=== PATIENT | female | born 1960 | race Caucasian/White ===

== ENCOUNTER 2018-09-21 13:44 | Emergency (ER) | payer MEDICARE, MEDICAID ==
[~2018-09-21] VITALS: Ht 165.1 cm; Wt 70.0 kg
[~2018-09-21 13:44] MED LIST: CELE-193 PO; LISI-222 PO; METH10DI2 PO; SYN0.075T PO
[2018-09-21 13:53] VITALS: BP 140/87
[2018-09-21] MEDS ORDERED: TETanus/Pertussis (Acell)/Diphther VAC/PF (Tdap-Adult) 0.5ml syringe IM ONE (16:30)
[2018-09-21] MEDS ORDERED: LIDOcaine 1.5% w/epinephrine 1:200,000 5ml ampul IJ ONE (16:30)
[2018-09-21] MEDS ORDERED: LIDOcaine 1% w/epiNEPHrine 1:200,000 30ml vial IJ ONE (16:35)
[2018-09-21] MEDS ORDERED: CEPH-572 PO (17:02)
== END 2018-09-21 17:15 | disposition home or self-care (01) ==
LOC: ER 13:44
DX: L03.012 Cellulitis of left finger (principal); I10 Essential (primary) hypertension; Z86.73 Personal history of transient ischemic attack (TIA), and cerebral infarction without residual deficits; Z90.49 Acquired absence of other specified parts of digestive tract; Z79.899 Other long term (current) drug therapy
CPT/HCPCS: 10060; 90471; 90715; 99283; J3490

== ENCOUNTER 2018-11-19 10:40 | Emergency (ER) | payer MEDICARE, MEDICAID ==
[~2018-11-19] VITALS: Ht 165.1 cm; Wt 69.5 kg
[2018-11-19 10:48] VITALS: BP 161/100
[2018-11-19] MEDS ORDERED: orphenadrine citrate 60mg/2ml inj. IM ONE (11:10)
== END 2018-11-19 11:36 | disposition home or self-care (01) ==
LOC: ER 10:40
DX: M43.6 Torticollis (principal); I10 Essential (primary) hypertension; G89.29 Other chronic pain; Z86.73 Personal history of transient ischemic attack (TIA), and cerebral infarction without residual deficits; Z90.49 Acquired absence of other specified parts of digestive tract; Z88.0 Allergy status to penicillin; Z79.899 Other long term (current) drug therapy
CPT/HCPCS: 96372; 99283; J2360

== ENCOUNTER 2022-12-14 09:09 | Outpatient (CLI) | payer MEDICARE, MEDICAID ==
[~2022-12-14 09:09] MED LIST changes: +APIX5TAB3 PO; +BUPR2TAB11 SL; +CARCD120C PO; -LISI-222 PO; -METH10DI2 PO; +ONDA4TAB12 PO; +TAM75C PO
== END 2022-12-14 23:59 | disposition home or self-care (01) ==
LOC: CARD DIAG 09:09
PROVIDERS: ATTEND Internal Medicine Cardiovascular Disease
DX: I08.1 Rheumatic disorders of both mitral and tricuspid valves (principal); I11.9 Hypertensive heart disease without heart failure; I48.91 Unspecified atrial fibrillation
CPT/HCPCS: 93306

== ENCOUNTER 2024-09-03 09:06 | Inpatient (IN) | payer MEDICARE, OTHER ==
[~2024-09-03] VITALS: Ht 165.1 cm; Wt 68.2 kg
[~2024-09-03 09:06] MED LIST changes: +ONDA-243 PO; -ONDA4TAB12 PO
[2024-09-03 09:39] LABS: BASOPHILS # (AUTO) 0.1 X10'3 (0-0.2); BASOPHILS % (AUTO) 0.9 % (0-1); EOSINOPHILS # (AUTO) 0.2 X10'3 (0-0.9); HEMATOCRIT 43.6 % (35.0-45.0); HEMOGLOBIN 14.5 g/dl (12.0-16.0); LYMPHOCYTES # (AUTO) 1.8 X10'3 (1.1-4.8); LYMPHOCYTES % (AUTO) 27.1 % (21-51); MEAN CORPUSCULAR HEMOGLOBIN 29.7 PG (27.0-31.0); MEAN CORPUSCULAR HGB CONC 33.4 g/dL (33.0-36.5); MEAN CORPUSCULAR VOLUME 88.9 FL (78-98); MEAN PLATELET VOLUME 7.5 FL (7.4-10.4); MONOCYTES # (AUTO) 0.5 X10'3 (0-0.9); MONOCYTES % (AUTO) 6.9 % (2-12); NEUTROPHILS # (AUTO) 4.1 X10'3 (1.8-7.7); NEUTROPHILS % (AUTO) 62.1 % (42-75); PLATELET COUNT 339 X10'3 (140-440); WHITE BLOOD COUNT 6.6 X10'3 (4.5-11.0)
[2024-09-03 09:56] LABS: ALBUMIN 4.4 G/DL (3.4-5.0); ANION GAP 7 (8-16); BLOOD UREA NITROGEN 14 MG/DL (7-18); CHLORIDE 104 MMOL/L (99-107); GLUCOSE 89 MG/DL (70-104); POTASSIUM 4.3 MMOL/L (3.5-5.1); SODIUM 138 MMOL/L (135-145); TOTAL CARBON DIOXIDE 26.6 MMOL/L (24-32); eCRCL 72 ML/MIN; eGFR 84 ML/MIN
[2024-09-03 09:58] LABS: APTT 29 SECONDS (22-32); PROTHROMBIN TIME 10.7 SECONDS (9.0-12.0)
[2024-09-03 10:44] LABS: THYROID STIMULATING HORMONE 2.56 ulU/ml (0.34-4.50)
[2024-09-03 10:57] LABS: BILIRUBIN,URINE NEGATIVE (Neg); CLARITY,URINE CLEAR (Clear); COLOR,URINE STRAW (Yellow); GLUCOSE, URINE NEGATIVE (Neg); KETONES,URINE NEGATIVE (Neg); LEUKOCYTE ESTERASE ,URINE NEGATIVE (Neg); NITRITES, URINE NEGATIVE (Neg); OCCULT BLOOD,URINE TRACE-INTACT (Neg); PH,URINE 7.5 (4.8-8.0); PROTEIN,URINE TRACE mg/dl (Neg); UROBILINOGEN,URINE 0.2 E.U/dL (0.2-1.0)
[2024-09-03 11:00] LABS: UA COLLECTION TYPE VOIDED
[2024-09-03 11:02] LABS: BACTERIA,URINE NONE SEEN /HPF (Neg); MUCUS STRANDS NONE SEEN /LPF (Neg); RBC,URINE 0-2 /HPF (0-2); SQUAMOUS EPITHELIAL CELL,UR FEW /LPF (FEW); WBC,URINE 0-4 /HPF (0-4)
[2024-09-03 11:04] LABS: URINE AMPHETAMINE SCREEN NEGATIVE (Neg); URINE BARBITUATE SCREEN NEGATIVE (Neg); URINE BENZODIAZEPINES SCREEN NEGATIVE (Neg); URINE CANNABINOID SCREEN NEGATIVE (Neg); URINE COCAINE SCREEN NEGATIVE (Neg); URINE METHADONE SCREEN NEGATIVE (Neg); URINE OPIATE SCREEN NEGATIVE (Neg); URINE PHENCYCLIDINE SCREEN NEGATIVE (Neg)
[2024-09-03] MEDS ORDERED: iohexol 350MG/ML 100ml bottle IV ONE (11:27)
[2024-09-03] MEDS ORDERED: LISI10TA27 PO (11:38)
[2024-09-03] MEDS ORDERED: SOTA80TA PO (11:38)
[2024-09-03] MEDS: acetaminophen 325mg tablet PO ONE (12:02)
[2024-09-03] MEDS ORDERED: acetaminophen 325mg tablet PO PRN (13:25)
[2024-09-03] MEDS ORDERED: potassium Cl 20 mEq SR tablet PO PRN ×2 (13:25)
[2024-09-03] MEDS ORDERED: potassium Cl 40MEQ/1/2NS 520ml 520 ML IV PRN (13:25)
[2024-09-03] MEDS ORDERED: magnesium sulf-water 4G/100mL 100 ML IV PRN (13:25)
[2024-09-03] MEDS ORDERED: magnesium hydroxide 30ml (MOM) UD suspension PO PRN (13:25)
[2024-09-03] MEDS ORDERED: magnesium sulf-water 2g/50mL 50 ML IV PRN (13:25)
[2024-09-03] MEDS ORDERED: bisacodyl 10mg suppository rectal RC PRN (13:25)
[2024-09-03 13:53] LABS: ALANINE AMINOTRANSFERASE 25 U/L (12-78); ALBUMIN/GLOBULIN RATIO 0.9 (1.1-1.5); ALKALINE PHOSPHATASE 115 IU/L (46-116); ASPARTATE AMINO TRANSFERASE 32 U/L (10-37); BILIRUBIN,DIRECT 0.1 MG/DL (0-0.3); BILIRUBIN,TOTAL 0.5 MG/DL (0.1-1.0); TOTAL PROTEIN 9.3 G/DL (6.4-8.2)
[2024-09-03] MEDS: normal saline 1000ml 1,000 ML IV SCH (13:53)
[2024-09-03] MEDS: atorvastatin 20mg tablet PO SCH (13:54)
[2024-09-03 14:00] LABS: HEMOGLOBIN A1C 5.3 % (4.5-6.2)
[2024-09-03] MEDS: sotalol 80mg tablet PO SCH (17:43)
[2024-09-03] MEDS: apixaban 5mg tablet PO SCH (19:35)
[2024-09-03] MEDS: docusate sod 100mg capsule PO SCH (19:35)
[2024-09-03] MEDS: acetaminophen 325mg tablet PO PRN (19:35)
[2024-09-03 20:00] VITALS: BP 174/100; PULSE 66; RESP 19; TEMP 97.5; O2SAT 100
[2024-09-03] MEDS: K and/or MAG REPLACEMENT MC SCH (20:00)
[2024-09-03] MEDS: BUPRENORPHINE HCL 2 MG SL SCH (20:00)
[2024-09-03 21:00] VITALS: BP 174/100; PULSE 66; TEMP 97.5; O2SAT 100
[2024-09-03 21:30] VITALS: BP 174/100; PULSE 66; TEMP 97.5; O2SAT 100
[2024-09-03] MEDS: HYDROcodone/acetaminophen 5mg/325mg tablet PO ONE (22:41)
[2024-09-04] VITALS (17 sets, daily range): BP systolic 136–209; BP diastolic 76–131; PULSE 64–95; RESP 13–17; TEMP 97.6–98.7; O2SAT 94–99
[2024-09-04 06:41] LABS: BASOPHILS # (AUTO) 0.1 X10'3 (0-0.2); BASOPHILS % (AUTO) 0.9 % (0-1); EOSINOPHILS # (AUTO) 0.1 X10'3 (0-0.9); EOSINOPHILS % (AUTO) 1.7 % (0-6); HEMATOCRIT 43.7 % (35.0-45.0); HEMOGLOBIN 14.8 g/dl (12.0-16.0); LYMPHOCYTES # (AUTO) 1.8 X10'3 (1.1-4.8); LYMPHOCYTES % (AUTO) 22.8 % (21-51); MEAN CORPUSCULAR VOLUME 88.4 FL (78-98); MEAN PLATELET VOLUME 7.9 FL (7.4-10.4); MONOCYTES # (AUTO) 0.6 X10'3 (0-0.9); MONOCYTES % (AUTO) 7.7 % (2-12); NEUTROPHILS # (AUTO) 5.2 X10'3 (1.8-7.7); NEUTROPHILS % (AUTO) 66.9 % (42-75); PLATELET COUNT 341 X10'3 (140-440); RED BLOOD COUNT 4.94 X10'6 (4.20-5.60); RED CELL DISTRIBUTION WIDTH 13.8 % (11.5-14.5); WHITE BLOOD COUNT 7.8 X10'3 (4.5-11.0)
[2024-09-04 07:10] LABS: ALANINE AMINOTRANSFERASE 26 U/L (12-78); ALBUMIN/GLOBULIN RATIO 0.9 (1.1-1.5); ANION GAP 10 (8-16); ASPARTATE AMINO TRANSFERASE 24 U/L (10-37); BILIRUBIN,TOTAL 0.7 MG/DL (0.1-1.0); BLOOD UREA NITROGEN 14 MG/DL (7-18); BUN/CREATININE RATIO 19.2 (10.0-20.0); CALCIUM 9.9 MG/DL (8.5-10.1); CHLORIDE 105 MMOL/L (99-107); CREATININE 0.73 MG/DL (0.40-0.90); GLUCOSE 95 MG/DL (70-104); MAGNESIUM 2.2 MG/DL (1.5-2.4); POTASSIUM 3.8 MMOL/L (3.5-5.1); SODIUM 140 MMOL/L (135-145); TOTAL CARBON DIOXIDE 24.9 MMOL/L (24-32); TOTAL PROTEIN 8.4 G/DL (6.4-8.2); eCRCL 69 ML/MIN; eGFR 80 ML/MIN
[2024-09-04 07:11] LABS: ALKALINE PHOSPHATASE 103 IU/L (46-116); CHOL/HDL RATIO 2.5 (0.00-4.99); CHOLESTEROL 194 MG/DL (0-200); FREE T4 (FREE THYROXINE) 1.09 NG/DL (0.73-1.40); HDL CHOLESTEROL 78 MG/DL (35-60); LDL CHOLESTEROL 100 MG/DL (50-100); TRIGLYCERIDES 58 MG/DL (20-135)
[2024-09-04] MEDS: levoTHYROXINE 75mcg tablet PO SCH (08:25)
[2024-09-04] MEDS ORDERED: HYDROcodone/acetaminophen 5mg/325mg tablet PO PRN (13:10)
[2024-09-04] MEDS: hydrALAZINE 20mg/ml inj. IV PRN (13:23)
[2024-09-04] MEDS ORDERED: atorvastatin 20mg tablet PO ONE (13:25)
[2024-09-04] MEDS: HYDROcodone/acetaminophen 10/325mg tab PO PRN (13:26)
[2024-09-04] MEDS: lisinopril 10 MG tablet PO SCH (19:55)
[2024-09-04] MEDS: ondansetron/PF 4mg/2ml inj IV PRN (19:57)
[2024-09-04] MEDS: metoclopramide 5 mg/ml inj IV PRN (23:49)
[2024-09-05 01:15] VITALS: BP 183/105; PULSE 86; RESP 23; TEMP 97.8; O2SAT 95
[2024-09-05] MEDS ORDERED: labetalol 20mg/4ml (5mg/ml) syringe IV ONE (01:30)
[2024-09-05] MEDS: diphenhydrAMINE 50 mg/ml inj IV ONE (01:30)
[2024-09-05] MEDS: hydrALAZINE 20mg/ml inj. IV ONE (03:13)
[2024-09-05] MEDS: proCHLORperazine 10 MG/2 ml inj IV ONE (03:14)
[2024-09-05 05:53] LABS: BASOPHILS % (AUTO) 0.2 % (0-1); EOSINOPHILS % (AUTO) 0 % (0-6); HEMATOCRIT 43.7 % (35.0-45.0); HEMOGLOBIN 14.7 g/dl (12.0-16.0); LYMPHOCYTES # (AUTO) 1.3 X10'3 (1.1-4.8); LYMPHOCYTES % (AUTO) 9.5 % (21-51); MEAN CORPUSCULAR HEMOGLOBIN 29.4 PG (27.0-31.0); MEAN CORPUSCULAR HGB CONC 33.5 g/dL (33.0-36.5); MEAN CORPUSCULAR VOLUME 87.6 FL (78-98); MONOCYTES # (AUTO) 0.4 X10'3 (0-0.9); NEUTROPHILS # (AUTO) 11.6 X10'3 (1.8-7.7); NEUTROPHILS % (AUTO) 87.3 % (42-75); PLATELET COUNT 382 X10'3 (140-440); RED BLOOD COUNT 4.99 X10'6 (4.20-5.60); RED CELL DISTRIBUTION WIDTH 13.9 % (11.5-14.5); WHITE BLOOD COUNT 13.3 X10'3 (4.5-11.0)
[2024-09-05 06:00] VITALS: BP 169/96; PULSE 102; RESP 18; TEMP 98.3; O2SAT 96
[2024-09-05 06:09] LABS: ALANINE AMINOTRANSFERASE 15 U/L (12-78); ALBUMIN/GLOBULIN RATIO 0.9 (1.1-1.5); ALKALINE PHOSPHATASE 101 IU/L (46-116); ANION GAP 15 (8-16); ASPARTATE AMINO TRANSFERASE 29 U/L (10-37); BILIRUBIN,TOTAL 0.6 MG/DL (0.1-1.0); BLOOD UREA NITROGEN 12 MG/DL (7-18); BUN/CREATININE RATIO 17.9 (10.0-20.0); CALCIUM 9.5 MG/DL (8.5-10.1); CHLORIDE 105 MMOL/L (99-107); CREATININE 0.67 MG/DL (0.40-0.90); GLUCOSE 153 MG/DL (70-104); MAGNESIUM 1.7 MG/DL (1.5-2.4); POTASSIUM 3.5 MMOL/L (3.5-5.1); SODIUM 139 MMOL/L (135-145); TOTAL CARBON DIOXIDE 19.3 MMOL/L (24-32); TOTAL PROTEIN 8.5 G/DL (6.4-8.2); eCRCL 75 ML/MIN; eGFR 88 ML/MIN
[2024-09-05] MEDS: atorvastatin 20mg tablet PO SCH (09:21)
[2024-09-05] MEDS: HYDROchlorothiazide 25mg tablet PO ONE (09:24)
[2024-09-05 10:00] VITALS: BP 155/93; PULSE 89; RESP 20; TEMP 98.6; O2SAT 97
[2024-09-05 11:28] VITALS: BP 165/84; PULSE 74; RESP 18; O2SAT 98
[2024-09-05 11:31] VITALS: RESP 18; O2SAT 98
[2024-09-05 12:09] VITALS: BP 141/68; PULSE 83
[2024-09-05] MEDS ORDERED: ATOR20TA66 PO (12:21)
[2024-09-05] MEDS ORDERED: HYDR25TA4 PO (12:21)
[2024-09-06] MEDS ORDERED: HYDROchlorothiazide 25mg tablet PO SCH (08:00)
== END 2024-09-05 13:58 | disposition home or self-care (01) | DRG 305 ==
LOC: ER 09:07 → ED HOLD 13:33 → ORTHO 4S 20:55
PROVIDERS: ADMIT Family Medicine; ATTEND Family Medicine
PROC: B32T1ZZ Computerized Tomography (CT Scan) of Left Pulmonary Artery using Low Osmolar Contrast (ICD-10-PCS; 2024-09-03)
PROC: B3201ZZ Computerized Tomography (CT Scan) of Thoracic Aorta using Low Osmolar Contrast (ICD-10-PCS; 2024-09-03)
PROC: B32S1ZZ Computerized Tomography (CT Scan) of Right Pulmonary Artery using Low Osmolar Contrast (ICD-10-PCS; 2024-09-03)
PROC: 4A00X4Z Measurement of Central Nervous Electrical Activity, External Approach (ICD-10-PCS; principal; 2024-09-04)
DX: I16.1 Hypertensive emergency (principal); I48.20 Chronic atrial fibrillation, unspecified; G45.4 Transient global amnesia; I10 Essential (primary) hypertension; I34.0 Nonrheumatic mitral (valve) insufficiency; M54.50 Low back pain, unspecified; E05.00 Thyrotoxicosis with diffuse goiter without thyrotoxic crisis or storm; G47.33 Obstructive sleep apnea (adult) (pediatric); Z88.0 Allergy status to penicillin; Z90.49 Acquired absence of other specified parts of digestive tract; Z79.899 Other long term (current) drug therapy; Z86.73 Personal history of transient ischemic attack (TIA), and cerebral infarction without residual deficits; Z80.3 Family history of malignant neoplasm of breast
CPT/HCPCS: 36415; 70450; 70496; 70498; 70551; 71045; 80048; 80053; 80061; 80076; 80305; 81001; 82607; 82948; 83036; 83735; 84439; 84443; 85025; 85610; 85730; 86885; 86900; 86901; 87081; 92508; 92616; 93005; 93306; 95816; 97110; 97116; 97163; 99285; A6590; G0378; J0360; J0780; J2405; J2765; J7030; Q9967

== ENCOUNTER 2025-06-06 11:18 | Inpatient (IN) | payer MEDICARE, MEDICAID ==
[~2025-06-06] VITALS: Ht 160 cm; Wt 71.0 kg
[~2025-06-06 11:18] MED LIST changes: +ATOR20TA66 PO; -CARCD120C PO; -CELE-193 PO; +LISI10TA27 PO; -ONDA-243 PO; +SOTA80TA PO; -TAM75C PO
--- NOTE | 2025-06-06 11:34 | ELECTROCARDIOGRAPH REPORT ---
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
[2025-06-06 12:04] LABS: MEAN PLATELET VOLUME 7.4 FL (7.4-10.4); RED CELL DISTRIBUTION WIDTH 14.0 % (11.5-14.5)
--- NOTE | 2025-06-06 12:04 | RADIOLOGY REPORT ---
CT CT STROKE ALERT Indication: Stroke Alert EXAM DATE: 06/06/2025 11:35 AM COMPARISON: CT CT STROKE ALERT on DOS: 09/03/24 TECHNIQUE: CT of the head without intravenous contrast. RADIATION DOSE: CTDIvol: 50 mGy, DLP: 890 mGy*cm FINDINGS: There is no intracranial hemorrhage. There is no extra-axial fluid, mass, mass effect or midline shift. The ventricles are midline and normal in size. Basilar cisterns are patent. Mild periventricular, subcortical white matter chronic microvascular ischemic changes The paranasal sinuses and mastoids are well-pneumatized. Imaged portion of the orbits are unremarkable. IMPRESSION: No intracranial hemorrhage or mass effect. Mild chronic microvascular ischemic changes.
--- NOTE | 2025-06-06 12:06 | Physician Documentation ---
History of Present Illness ~ Chief Complaint: Stroke Alert Stated Complaint: R/O STROKE Time Seen by MD: 12:04 Primary Medical Doctor: JASON Mode of Arrival: POV HPI This is a 64-year-old female on apixaban who presents for evaluation of sudden onset blurry vision, diaphoresis, left upper extremity weakness that began at 9:00 a.m.. No obvious trigger provocation. The palliating or aggravating factors. She had gone to see her PCP and noticed for the her blood pressure was markedly elevated. PCP sent her here for evaluation of stroke-like symptoms. Symptoms still persist. Reports intermittent chest pain/chest discomfort. This is not new for her. She had experienced this in the past. Denies shortness a breath. No concern for tobacco, alcohol or illicit substances use Medication Reconciliation Allergies: Coded Allergies: Penicillins (Unverified Allergy, Unknown, 09/03/24) diphenhydramine (Unverified Adverse Reaction, Intermediate, 09/05/24) headache Scheduled Apixaban (Eliquis), 5 MG PO BID Atorvastatin Calcium (Atorvastatin Calcium), 20 MG PO DAILY Buprenorphine Hcl (Buprenorphine Hcl), 0.5-1 TAB SL BID, (Reported) Levothyroxine Sodium* (Synthroid*), 75 MCG PO DAILY, (Reported) Lisinopril (Lisinopril), 1 TAB PO BID, (Reported) Sotalol Hcl (Sotalol), 1 TAB PO BID, (Reported) Past Medical History Past Medical History: CVA/TIA/Stroke, Atrial Fibrillation, Hypertension, Hypothyroidism, Chronic Back Pain Past Surgical History: appendectomy, other Patient History: FH: breast cancer Paternal grandmother Alcohol Use: Rarely Drug Use: none Lives In: Home Occupation: employed Review of Systems ROS 10 point review of systems was performed and unless noted above in HPI is negative for acute process/complaint. Physical Exam Vital Signs: Temperature: 97.4, Source: Temporal, Heart Rate: 53, Respiratory Rate: 16, BP: 182/63, Pulse Oximetry: 100, Weight: 71.000 Oxygen Flow Rate: 0 General Appearance GENERAL: Awake, alert, oriented, GCS 15, no apparent distress, non-toxic appearing, answers questions, follows commands appropriately. Examined in bed 1. HEENT: Atraumatic, normocephalic, pupils equal, extraocular muscles intact, sclerae anicteric, mucus membranes moist, oropharynx is clear, no stridor. NECK: supple, full active range of motion, trachea midline, no thyromegaly, no lymphadenopathy, no JVD. CARDIOVASCULAR: regular rate/rhythm, no murmurs/gallops/rubs, Pulses are 2+ in all extremities and symmetric. Capillary refill less than 2 seconds. PULMONARY: Nonlabored, good air movement ,no respiratory distress, speaking in full sentences, clear to auscultation bilaterally, no wheezing, no ronchi, no rales, no accessory muscle use. GASTROINTESTINAL: Soft, non-tender, non-distended, normal active bowel sounds, no organomegaly, no pulsatile masses, no CVA tenderness. NEUROLOGIC: Lucid with normal mental status. Normal facial symmetry. Decreased sensation in V1 through V3 dermatomes on the left side. Otherwise cranial nerves 2-12 intact. Left upper extremities 4/5 strength, right upper extremities 5/5 strength. Left upper extremity drift noted. Lower extremities are symmetric, 5/5. Gait not tested. MUSCULOSKELETAL: There is full range of motion of all extremities. There is no joint pain or joint swelling or joint erythema. There is no muscle pain or tenderness or swelling. EXTREMITIES: warm, well-perfused, no cyanosis, no clubbing, no edema, no acute deformities. Skin: warm, dry, no rashes or lesions, no jaundice, no petechiae orpurpura. No ecchymosis. PSYCHIATRIC: Normal affect, normal insight, normal concentration. Focused exam: [] t-PA t-PA given w/in 2hrs?: No Progress Results/Orders Results/Orders Orders - CHARLIE GONZALES DO Monitor (06/06/25 11:30) 2 Large Bore Ivs (06/06/25 11:30) Chest,Single View (06/06/25 11:30) Accucheck (06/06/25 11:30) Ct Stroke Alert (06/06/25 11:42) [place] Prov.Neuro Consult (06/06/25 11:30) Cta Neck/Head (06/06/25 11:57) Completed Orders - CHARLIE GONZALES DO Cbc/Diff (06/06/25 11:30) Electrocardiogram (06/06/25 11:30) Chest,Single View (06/06/25 11:30) Ct Stroke Alert (06/06/25 11:42) BMP (06/06/25 11:30) PTT (06/06/25 11:30) Pt Inr (06/06/25 11:30) Cta Neck/Head (06/06/25 11:57) Normal Saline 1000ml (0.9% Sodium Chlori (06/06/25 12:30) Medications Received in ER Medications (Trade) Dose Ordered Sig/Becki Route PRN Reason Start Time Stop Time Status Last Admin Dose Admin Sodium Chloride 1,000 ml @ 1,000 mls/hr ONCE ONCE IV 06/06/25 12:30 06/06/25 13:29 DC 06/06/25 12:56 1,000 MLS/HR Vital Signs 06/06/25 06/06/25 06/06/25 06/06/25 11:19 11:44 11:44 12:00 Temp 97.4 Pulse 53 60 59 Resp 16 12 10 B/P (MAP) 182/63 169/97 169/97 Pulse Ox 100 98 96 O2 Flow Rate 0 06/06/25 06/06/25 06/06/25 06/06/25 12:19 12:30 12:45 12:59 Pulse 60 54 52 54 Resp 16 15 14 13 B/P (MAP) 175/89 149/77 151/54 155/82 Pulse Ox 94 96 92 95 06/06/25 13:15 Pulse 53 Resp 14 B/P (MAP) 160/70 Pulse Ox 97 Laboratory Tests Test 06/06/25 11:25 06/06/25 11:56 Glucometer 97 White Blood Count 10.1 Red Blood Count 4.27 Hemoglobin 12.6 Hematocrit 37.4 Mean Corpuscular Volume 87.5 Mean Corpuscular Hemoglobin 29.5 Mean Corpuscular Hemoglobin Concent 33.7 Red Cell Distribution Width 14.0 Platelet Count 299 Mean Platelet Volume 7.4 Neutrophils (%) (Auto) 71.9 Lymphocytes (%) (Auto) 19.0 L Monocytes (%) (Auto) 6.6 Eosinophils (%) (Auto) 1.8 Basophils (%) (Auto) 0.7 Neutrophils # (Auto) 7.3 Lymphocytes # (Auto) 1.9 Monocytes # (Auto) 0.7 Eosinophils # (Auto) 0.2 Basophils # (Auto) 0.1 CBC Comment Prothrombin Time 10.4 INR International Normalized Ratio 1.0 Activated Partial Thromboplast Time 29 Coagulation Comments Sodium Level 144 Potassium Level 4.2 Chloride Level 107 Carbon Dioxide Level 30.2 Anion Gap 7 L Blood Urea Nitrogen 19 H Creatinine 0.91 H Estimated GFR/1.73 m2 62 BUN/Creatinine Ratio 20.9 H Glucose Level 103 Calcium Level 9.7 Albumin 3.9 Chemistry Comments EKG/XRAY/CT/US/VASC/MRI EKG : Additional Comment EKG was obtained and shows status bradycardic, rate of EKG, normal MT interval, narrow QRS, no QT prolongation, normal axis, no STEMI. Medical Decision Making Findings Facility Status: ED Holds, RME process The plan was discussed with the patient, who demonstrates clear understanding of the plan and is in agreement with the plan unless otherwise noted in the chart. All questions have been answered, all concerns were addressed unless otherwise documented. I was available throughout their ED stay for frequent reassessment and qu estions. Differential Diagnoses (considered and possible or likely): [TIA, CVA, partial seizure, complex migraine, hypoglycemia, electrolyte derangement, intracranial neoplasm] ??Differential Diagnoses (considered and unlikely, not requiring evaluation currently): [No evidence of traumatic injury] MDM Data Please see HPI for the following: Independent Historians and external Records Review. Historian: [Patient] Independent Historians: ?[Record review] Medication Management: [Reviewed medication list] Social History and determinants: [Reviewed] Please see the body of the note for the following: Any independent interpretations of ECG, imaging studies. All vitals signs/haemodynamics, ordered tests were independently reviewed and interpreted by myself. Nursing triage complaint and vitals reviewed, additional nursing notes were reviewed as available and I agree unless otherwise noted or documented in contradiction in the chart Vital Signs: Independently reviewed Labs: Independently interpreted Imaging: Independently interpreted Old Medical Records: Independently reviewed, see HPI for relevant summary and information Pulse Oximetry: [98%] interpreted as [normal on room air] by me [Experimental Machinist: [Regular Rate, Regular rhythm, no ectopy, NSR] reviewed and interpreted by me] Additionally notably showing: [Hemodynamics reviewed. The patient isn't febrile, not tachycardic, no evidence of hypotension respiratory distress. CBC is normal, no leukocytosis. Coagulation panel is unremarkable. Chemistry notable for mild dehydration. CC head without contrast per radiology confirms my read, the risk of hemorrhage or mass effect. CT angiography showed no large vessel occlusion. Chest x-ray shows no acute cardiopulmonary disease.] Tests considered but not ordered include: [MRI can be done on an inpatient basis] Social Determinants of Health Impact: Patient was evaluated in [facility], or [facility] [place] with limited access to healthcare due to below par ratio of patient to medical providers. [] Comorbid Conditions Impacting Present Evaluation and Care/Treatment: [See list] Management Discussions with other Healthcare Providers: [Hospitalist regarding admission] Treatment and Disposition Medication Management (Given or considered): [TNKase has been considered, but I feel that risks outweigh benefits]. See EMR for details Consideration for Hospitalization/Escalation/Deescalation of Care: Admission for observation has been considered, and appears to be necessary for further workup of her stroke-like symptoms ?ED Course:?[Date: Jun 06, 2025 Time: 11:55 per my independent review and interpretation of her head CT without contrast, there is no evidence of bleed. ] ?Shared decision making:?[] Code status:?FULL Please see the full Electronic Medical Record for full details of nursing documentation, medications list, other records of complete past medical history and conditions, vital signs, laboratory studies, and any radiologic study interpretations by radiologists. Portions of this note were completed using EverCloud dictation software and as a result there may exist minor errors in spel ling. I have reviewed elements of past family and social history and agree as included in note. Departure Disposition: 09 ADMITTED INPATIENT Impression: Primary Impression: Stroke-like symptoms Additional Impressions: Hypertensive urgency Blurry vision Left arm weakness Condition: Stable Referrals: NO PRIMARY CARE PROVIDER (PCP) Critical Care Note Critical Care Note CRITICAL CARE TIME: [35 ] minutes Treatments/Evaluations: Close monitoring and treatment of unstable vital signs, cardiorespiratory, and neurologic status, while maintaining tight balance of fluid, respiratory, and cardiac interventions. This time includes discussing the case with the patient and the patients family. This time does not include all procedures stated elsewhere in this record. This time also includes reviewing old records, labs and radiological studies. This time includes examining and re- examining the patient. Additionally, this time also includes arranging care with admitting and consulting physicians. Signature Scribe Signature: No scribe Attestation: This note accurately reflects clinical decisions, work performed by myself, Charlie Gonzales, CHARLIE COOK DO Jun 06, 2025 12:06
[2025-06-06 12:18] LABS: APTT 29 SECONDS (22-32); INR 1.0 INR
--- NOTE | 2025-06-06 12:24 | RADIOLOGY REPORT ---
CT CTA NECK/HEAD INDICATION: Stroke Alert TECHNIQUE: CT angiography along with MIP and MPR images were obtained of the [place] arteries. CT angiography along with MIP and MPR images were obtained of the cervical carotid and vertebral arteries. All CT scans at this facility use dose modulation, iterative reconstruction, and/or weight based dosing when appropriate to reduce radiation dose to as low as reasonably achievable. 3-D postprocessing was performed on a separate workstation under radiologist supervision. IV CONTRAST: 100 mL of low osmolar intravenous iodinated contrast material was administered. COMPARISON: CT CT STROKE ALERT on DOS: 06/06/25 FINDINGS: CT HEAD: Parenchyma: No acute hemorrhage. There is no mass effect, midline shift, or herniation. There is preservation of the guevara white differentiation. Ventricles: There is no hydrocephalus. Extra-axial spaces: There are no extra-axial fluid collections. Other: The bony structures are intact. Visualized portions of the paranasal sinuses and mastoid air cells are clear. ANTERIOR CIRCULATION: Distal internal carotid arteries including the petrous, cavernous, and supraclinoid segments are patent bilaterally. Anterior cerebral arteries including the A1 and A2 segments are patent bilaterally. Anterior communicating artery patent without aneurysm formation. Middle cerebral arteries including the horizontal M1 and sylvian M2 are patent bilaterally. Congenitally absent versus hypoplastic posterior communicating arteries. POSTERIOR CIRCULATION: Posterior cerebral arteries are patent bilaterally. Vertebral arteries are codominant The intracranial segments of the vertebral arteries are patent bilaterally. The basilar artery is patent without aneurysm formation. The posterior inferior cerebellar arteries are patent bilaterally. CERVICAL VESSELS: The thoracic aortic arch is patent without evidence of aneurysmal dilatation or dissection. The right common carotid artery, carotid bulb, and cervical segment of the right internal carotid artery are patent The left common carotid artery, carotid bulb, and cervical segment of the left internal carotid artery are patent The cervical segments of the right vertebral artery are patent OTHER: [id number] centrilobular emphysema. Small less than 4 mm micro nodules in upper lobes. Consider dedicated CT of the chest with contrast if clinically indicated. IMPRESSION: 1. No large vessel occlusion, aneurysmal dilatation, or dissection seen within the intracranial or cervical vessels.
[2025-06-06 12:27] LABS: CREATININE 0.91 MG/DL (0.40-0.90); TOTAL CARBON DIOXIDE 30.2 MMOL/L (24-32); eCRCL 50 ML/MIN; eGFR 62 ML/MIN
--- NOTE | 2025-06-06 12:38 | RADIOLOGY REPORT ---
EXAM: DI CHEST,SINGLE VIEW Indication: pain Technique: Single frontal view of the chest was obtained Comparison: CT CTA CHEST PE W/ IV CONTRAST on DOS: 11/01/24, DI CHEST,SINGLE VIEW on DOS: 10/30/24, DI CHEST,SINGLE VIEW on DOS: 09/03/24, CHEST,SINGLE VIEW on DOS: 09/20/22, CHEST,SINGLE VIEW on DOS: 10/14/21 FINDINGS: Lines and Tubes: None Lungs: No focal consolidation. Pleura: No effusion. No pneumothorax. Cardiomediastinal contours: Unremarkable Bones: No acute osseous abnormality. IMPRESSION: No acute cardiopulmonary disease.
[2025-06-06] MEDS: normal saline 1000ml 1,000 ML IV ONE (12:56)
--- NOTE | 2025-06-06 13:27 | CONSULTATION REPORT ---
History of Present Illness Providers to CC ~ Refering MD: JASON Allergies: Coded Allergies: Penicillins (Unverified Allergy, Unknown, 09/03/24) diphenhydramine (Unverified Adverse Reaction, Intermediate, 09/05/24) headache Home Medications Home Medications Active Atorvastatin Calcium 20 Mg Tablet 20 Mg PO DAILY Eliquis (Apixaban) 5 Mg Tablet 5 Mg PO BID Reported Lisinopril 10 Mg Tablet 1 Tab PO BID Sotalol (Sotalol Hcl) 80 Mg Tablet 1 Tab PO BID Buprenorphine Hcl 2 Mg Tab.subl 0.5-1 Tab SL BID Synthroid* (Levothyroxine Sodium) 75 Mcg Tablet 75 Mcg PO DAILY Past Family History Family History: FH: breast cancer Paternal grandmother Physical Exam Last Vital Signs Recorded: Temperature: 97.9, Source: Temporal, Heart Rate: 54, Respiratory Rate: 13, BP: 155/82, Pulse Oximetry: 95, Weight: 71.000 Results Diagram Lab Result Diagram: 06/06/25 1156 06/06/25 1156 Assessment/Plan Additional Plan [place] [facility] Note # Demographics Consult Type: Acute Stroke Level 1 (0-4.5 hrs) Patient Location: Emergency Room First Name: SHY Last Name: ALE Date of : 1960 Age: 64 Gender: Male Facility: [facility] Time of Initial Page (): 06/06/2025 11:38 First Contact with Site (): 06/06/2025 11:38 # HPI Chief Complaint: - weakness (focal) History: 64 y/o woman who at 9 AM developed blurred vision, diaphoresis, and left arm weakness. At CT at time of alert. Is on Eliquis. At CT at time of alert. Patient reports feeling weak all over and her vision has changed also--everything is blurry. Symptoms started when she got to work. No provoking factor. Similar symptoms previously. Family then describes a transient global amnesia vs hypertensive emergency. # Scores Time of exam and NIHSS (): 06/06/2025 12:11 Level of Consciousness 1a: [0] = Alert; keenly responsive LOC Questions 1b: [0] = Answers both questions correctly LOC Commands 1c: [0] = Performs both tasks correctly Best Gaze 2: [0] = Normal Visual 3: [1] = Partial hemianopia Facial Palsy 4: [0] = Normal symmetrical movements Motor Arm Left 5a: [0] = No drift Motor Arm Right 5b: [0] = No drift Motor Leg Left 6a: [0] = No drift Motor Leg Right 6b: [0] = No drift Limb Ataxia 7: [0] = Absent Sensory 8: [1] = Bhbn-[id number] sensory loss Best Language 9: [0] = No aphasia Dysarthria 10: [0] = Normal Extinction and Inattention 11: [0] = No abnormality NIHSS Total: 2 # Exam Cranial Nerves: Says she sees the right side better than the left # Data Head CT: - no bleed - per radiologist read CTA Head: - no large vessel occlusion - per radiologist read # Assessment Impression: - Weakness Limited lateralizing deficits favors stroke mimic # Plan Thrombolytic/Intervention: NOT IV Thrombolysis or IA Intervention candidate Thrombolytic Exclusion (< 3 hour window): - actively on NOAC Intraarterial Exclusion: - no large vessel occlusion (LVO) Other: - If patient has any neurological deterioration please call me back immediately - I have discussed my recommendations with the referring provider Additional Recommendations: Infectious/metabolic per ED/Primary. Consider brain MRI if symptoms persist and no clear etiology. Additional stroke eval if MRI positive for acute ischemic stroke. # Logistics Attestation of consult completion: The patient is located at: [facility]. Facility staff participated in the visit. I performed this telemedicine visit from my offsite office utilizing interactive 2 way audio and visual telecommunication technology at the request of the onsite emergency room provider. Total time spent in telemedicine encounter: I spent 20 minutes reviewing clinical data and/or imaging, obtaining history, examining the patient, communicating with the onsite care team, and in preparation of this report. # Demographics First Name: SHY Last Name: ALE Facility: [facility] ZHAO MEDRANO MD Jun 06, 2025 13:27
[2025-06-06] MEDS ORDERED: magnesium Cl slow-release 64mg tablet PO PRN (14:05)
[2025-06-06] MEDS ORDERED: magnesium sulf-water 4G/100mL 100 ML IV PRN (14:05)
[2025-06-06] MEDS ORDERED: magnesium sulf-water 2g/50mL 50 ML IV PRN (14:05)
[2025-06-06] MEDS ORDERED: bisacodyl 10mg suppository rectal RC PRN (14:05)
[2025-06-06] MEDS ORDERED: magnesium hydroxide 30ml (MOM) UD suspension PO PRN (14:05)
[2025-06-06] MEDS ORDERED: potassium Cl 40MEQ/1/2NS 520ml 520 ML IV PRN (14:05)
[2025-06-06] MEDS ORDERED: HYDROcodone/acetaminophen 10/325mg tab PO PRN (14:05)
[2025-06-06] MEDS ORDERED: potassium Cl 20 mEq SR tablet PO PRN ×2 (14:05)
[2025-06-06 16:00] VITALS: BP 133/85; PULSE 59; RESP 16; TEMP 98.2; O2SAT 98
[2025-06-06 18:00] VITALS: BP 133/85; PULSE 54; RESP 16; TEMP 98.2; O2SAT 98
[2025-06-06] MEDS: normal saline 1000ml 1,000 ML IV SCH (18:33)
--- NOTE | 2025-06-06 18:45 | RADIOLOGY REPORT ---
EXAM: MR MRI HEAD INDICATION: stroke like symptoms TECHNIQUE: Multiplanar, multisequence imaging of the brain without contrast. COMPARISON: CT CTA NECK/HEAD on DOS: 06/06/25 FINDINGS: [PARENCHYMA]: No acute infarct or hemorrhage. No mass effect or herniation. No abnormal susceptibility weighted artifact. There are mild periventricular and centrum semiovale T2/FLAIR hyperintensities, which are nonspecific but most likely represent chronic microvascular ischemic change. [VENTRICLES]: No hydrocephalus. [EXTRA-AXIAL SPACES]: No extra-axial fluid collections. [FLOW VOIDS]: The flow voids are intact. [EXTRA-CRANIAL STRUCTURES]: The bony structures are intact. Visualized portions of the paranasal sinuses and mastoid air cells are essentially clear. IMPRESSION: 1. No acute infarct or hemorrhage.
[2025-06-06] MEDS: heparin, porcine 5000 units/ml vial SQ SCH (19:55)
[2025-06-06 20:00] VITALS: BP 130/72; PULSE 58; RESP 18; TEMP 98.5; O2SAT 97
--- NOTE | 2025-06-06 20:30 | HISTORY AND PHYSICAL ---
History & Physical Providers to CC ~ History of Present Illness Reason for Admit\Complaint: Double vision this morning History of Present Illness Patient is 64-year-old female history of AFib, hypertension, hyperlipidemia, hypertensive emergency with CVA Global amnesia, Hypertensive emergency Obstructive sleep apnea and CPAP, Graves disease Chronic lumbar pain. Came to ER with her concern regarding blurry and double vision which she noticed this morning. She denied use of any alcohol tobacco or any recreational drugs. Patient has cardiac issues for which she follows with employee relations specialist Dr. Carbajal . She had gone to see her PCP Dr Villegas and noticed for the her blood pressure was markedly elevated. PCP sent her here for evaluation of stroke-like symptoms. Patient denies any other symptoms off and on she has noticed chest pressure which is nonradiating. Neurology consultation done in ER assessment weakness they recommended brain MRI if symptoms persist and no clear etiology. Hospitalist services contacted for admission and further managemnt . Allergies: Coded Allergies: Penicillins (Unverified Allergy, Unknown, 09/03/24) diphenhydramine (Unverified Adverse Reaction, Intermediate, 09/05/24) headache Home Medications Home Medications Active Eliquis (Apixaban) 5 Mg Tablet 5 Mg PO BID Reported Lisinopril 10 Mg Tablet 1 Tab PO BID Sotalol (Sotalol Hcl) 80 Mg Tablet 1 Tab PO BID Buprenorphine Hcl 2 Mg Tab.subl 0.5-1 Tab SL BID Synthroid* (Levothyroxine Sodium) 75 Mcg Tablet 75 Mcg PO DAILY Past Medical History Past Medical History history of AFib, hypertension, hyperlipidemia, hypertensive emergency with CVA Global amnesia, Hypertensive emergency Obstructive sleep apnea and CPAP, Graves disease Chronic lumbar pain. Past Surgical History Surgical History Comment Thyroid ablation Family History Family History: FH: breast cancer Paternal grandmother FH: hypertension brother sister ROS ROS Reviewed and negative except positive pertinent as in HPI Exam Vitals: Vital Signs Date Time Temp Pulse Resp B/P (MAP) Pulse Ox O2 Delivery O2 Flow Rate FiO2 06/06/25 18:30 63 06/06/25 18:00 98.2 16 133/85 (101) 98 Room Air 06/06/25 14:38 0 General: General-patient not in any acute distress, alert awake oriented, chronically ill-appearing HEENT-atraumatic normocephalic, neck supple without elevated JVD, no thyromegaly or carotid bruit. No lymphadenopathy bilaterally. Eyes-no icterus or pallor seen in eyes, subjective double vision in left eye Chest-clear to auscultation bilaterally, breathing nonlabored no tachypnea, no wheezing, no crepitation, no crackles. Heart-S1-S2 normal, regular heart rate no murmur Abdomen bowel sounds positive on auscultation, soft nondistended nontender no guarding, no rigidity Skin no active skin rash Neurology-grossly intact, nonfocal alert awake oriented, no arm drift, no speech abnormality no drooping of angle of mouth no weakness over both upper or lower extremity. Extremity- no pedal edema able to move all 4 extremities Psychiatry - patient is not confused or agitated cooperated during physical examination Diagnostic Data Last Recorded Lab Results: 06/06/25 1156 06/06/25 1156 Diagnostic Data: Laboratory Tests Test 06/06/25 11:56 Prothrombin Time 10.4 SECONDS (9.0-12.0) INR International Normalized Ratio 1.0 INR Activated Partial Thromboplast Time 29 SECONDS (22-32) Coagulation Comments Advance Care Planning Advanced Care plannin - 30 Minutes Additional Plan Patient is 64-year-old female with known history of history of AFib, hypertension, hyperlipidemia, hypertensive emergency with CVA Global amnesia, Hypertensive emergency Obstructive sleep apnea and CPAP, Graves disease Chronic lumbar pain. She was admitted for stroke-like symptoms and double vision. Further stroke workup ordered which include MRI carotid Doppler studies neuro check. We will continue to monitor patient's labs and vitals closely . Needs physical therapy evaluation before discharge . Code status discussed with the patient patient wishes full code Time spent in discussing code status 16 minutes. We will do home medication reconciliation once updated in electronic by nursing staff or pharmacist. Further management depending on response to treatment and as per recommendation by neurology specialist I will continue to follow patient in a.m. Date of Service: Jun 07, 2025 Billing Provider: TANNER WATSON MD Common Visit Codes: 76799-[id number] INP/OBS CARE (HIGH) Secondary Visit Codes: [id number]-[id number] CARE PLAN 30 MINUTES TANNER WATSON MD Jun 06, 2025 20:30
[2025-06-06 20:45] VITALS: RESP 18; O2SAT 98
[2025-06-06 22:00] VITALS: BP 130/72; PULSE 58; RESP 18; TEMP 98.5; O2SAT 97
[2025-06-07] VITALS (9 sets, daily range): BP systolic 128–176; BP diastolic 72–91; PULSE 56–77; RESP 13–18; TEMP 97.7–98.2; O2SAT 94–100
[2025-06-07 06:35] LABS: MEAN PLATELET VOLUME 7.7 FL (7.4-10.4); RED CELL DISTRIBUTION WIDTH 14.2 % (11.5-14.5)
[2025-06-07 06:53] LABS: CREATININE 0.75 MG/DL (0.40-0.90); TOTAL CARBON DIOXIDE 29.5 MMOL/L (24-32); eCRCL 61 ML/MIN; eGFR 77 ML/MIN
[2025-06-07] MEDS: aspirin 81mg, enteric-coated 1 TAB TABLET.DR PO SCH (09:38)
[2025-06-07] MEDS: HYDROcodone/acetaminophen 5mg/325mg tablet PO PRN (13:19)
--- NOTE | 2025-06-07 13:23 | CARDIOLOGY REPORT ---
APPROVED REPORT EXAM: Comprehensive 2D, Doppler, and color-flow Echocardiogram. Patient Location: ED1 Blood Pressure: 125/67 mmHg Heart Rate: 63 bpm Rhythm: NSR Indications AFIB Hypertension Store Mgr is BV. Solomon MD. Previous echo 10/28/24 [facility] 60% EF tr AI MR m TR 2D Dimensions LA Diam 4.0 cm IVSd 0.9 (0.7-1.1cm) LVDd 4.8 cm PWd 1.0 (0.7-1.1cm) IVSs 1.5 (0.8-1.2cm) LVDs 2.7 (2.5-4.0cm) Aortic Root(2D) 3.1 cm PWs 1.5 (0.8-1.2cm) LVOT Diameter 2.09 (1.8-2.4cm) LVEF(%) 75.2 (>50%) Ao Asc Diam. 2.67 cm IVC 22.20 mm FS (%) 44.0 % SV 79.7 ml CO 4.5 L/min M-Mode Dimensions MV EPSS 0.4 (<0.5cm) Aortic Valve AoV Peak Lance. 120.8 cm/s AoV VTI 33.4 cm AO Peak GR. 5.8 mmHg AO Mean GR. 3 mmHg LVOT VTI 27.04 cm LVOT Peak Lance. 95.5 cm/s NIMA(VTI)/BSA 2.78 cm2/m2 NIMA (VTI) 2.78 cm2 Mitral Valve MV E Velocity 90.9 cm/s MV Peak Gr. 4 mmHg MV DECEL TIME 192 ms MV A Velocity 60.3 cm/s MV PHT 64 ms E/A Ratio 1.5 MVA (PHT) 3.44 cm2 MV VMax 101.9 cm/s TDI Medial E' P. V 8.29 cm/s E/Medial E' 11.0 Tricuspid Valve TR P. Velocity 265 cm/s RAP ESTIMATE 10 mmHg TR Peak Gr. 28 mmHg RVSP 38 mmHg Pulmonary Vein S1 Velocity 63.9 cm/s D2 Velocity 48.1 cm/s PVa Velocity 34.4 cm/s PVa Duration 116 msec LEFT VENTRICLE Normal LV size and wall thickness. Overall systolic function is normal. overall LVEF is 70%. RIGHT VENTRICLE RV appears mildly dilated with normal contractility. RVSP is estimated at 38 mmHG. ATRIA The left atrium size is normal. AORTIC VALVE Trileaflet AV appears sclerotic without stenosis. Trace insufficiency. MITRAL VALVE MV is thickened with mild annular thickening and no stenosis. Trace mitral regurgitation. TRICUSPID VALVE The tricuspid valve is normal in structure. Trace tricuspid regurgitation. PULMONIC VALVE The pulmonary valve is normal in structure. Trace pulmonic regurgitation. GREAT VESSELS The aortic root is normal in size. The ascending aorta is normal in size. IVC is dilated and collapses greater than 50% with inspiration. PERICARDIUM There is no pericardial effusion. Other Information Study Quality: Adequate Conclusion overall LVEF is 70%. Normal LV size and wall thickness. Overall systolic function is normal. RV appears mildly dilated with normal contractility. RVSP is estimated at 38 mmHG. Trileaflet AV appears sclerotic without stenosis. Trace insufficiency. MV is thickened with mild annular thickening and no stenosis. Trace tricuspid regurgitation. Trace pulmonic regurgitation. There is no pericardial effusion.
--- NOTE | 2025-06-07 16:16 | RADIOLOGY REPORT ---
PROCEDURE: MR MRA HEAD Indication: stroke like symptoms COMPARISON: 06/06/2025 TECHNIQUE: MRA of the head is obtained using 3D [id number]. FINDINGS: The intracranial right internal carotid artery demonstrates no high-grade stenosis. The right middle cerebral artery demonstrates no high-grade stenosis. The intracranial left internal carotid artery demonstrates no high-grade stenosis. The left middle cerebral artery demonstrates no high-grade stenosis. The right anterior cerebral artery demonstrates no high-grade stenosis. The left anterior cerebral artery demonstrates no high-grade stenosis. Basilar artery demonstrates no high-grade stenosis. The right posterior cerebral artery demonstrates no high-grade stenosis. The left posterior cerebral artery demonstrates no high-grade stenosis. IMPRESSION: No large vessel high-grade intracranial stenosis.
--- NOTE | 2025-06-07 20:07 | Visit Coding Note ---
Date of Service: Jun 06, 2025 Billing Provider: TANNER WATSON MD Common Visit Codes: [id number]-EPCBTQH INP/OBS CARE (HIGH) Secondary Visit Codes: 29900-TGEAFITF CARE PLAN 30 MINUTES TANNER WATSON MD Jun 07, 2025 20:07
--- NOTE | 2025-06-07 20:28 | PROGRESS NOTE ---
Daily Progress Note Providers to CC ~ Antibiotic Timeout Antibiotic Ordered?: No Subjective Patient was seen in presence of nursing staff. Patient blurry vision resolved and she does not have any focal neurological deficit. Patient is waiting to get the MRI and MRA of head. We will get evaluated by Physical therapy team. Objective Vital Signs Date Time Temp Pulse Resp B/P (MAP) Pulse Ox O2 Delivery O2 Flow Rate FiO2 06/07/25 20:18 77 06/07/25 18:00 98.1 13 169/91 (117) 98 Room Air 06/07/25 15:30 0.0 Result Diagram: 06/07/25 0536 06/07/25 0536 General-patient not in any acute distress, alert awake oriented, chronically ill-appearing HEENT-atraumatic normocephalic, neck supple without elevated JVD, no thyromegaly or carotid bruit. No lymphadenopathy bilaterally. Eyes-no icterus or pallor seen in eyes, double vision in left eye resolved Chest-clear to auscultation bilaterally, breathing nonlabored no tachypnea, no wheezing, no crepitation, no crackles. Heart-S1-S2 normal, regular heart rate no murmur Abdomen bowel sounds positive on auscultation, soft nondistended nontender no guarding, no rigidity Skin no active skin rash Neurology-grossly intact, nonfocal alert awake oriented, no arm drift, no speech abnormality no drooping of angle of mouth no weakness over both upper or lower extremity. Extremity- no pedal edema able to move all 4 extremities Psychiatry - patient is not confused or agitated cooperated during physical examination Coagulation Studies Laboratory Tests Test 06/06/25 11:56 Prothrombin Time 10.4 SECONDS (9.0-12.0) INR International Normalized Ratio 1.0 INR Activated Partial Thromboplast Time 29 SECONDS (22-32) Coagulation Comments Problem\Assessment\Plan Patient is 64-year-old female with known history of history of AFib, hypertension, hyperlipidemia, hypertensive emergency with CVA Global amnesia, Hypertensive emergency Obstructive sleep apnea and CPAP, Graves disease Chronic lumbar pain. She was admitted for stroke-like symptoms and double vision. Further stroke workup ordered which include MRI carotid Doppler studies neuro check. We will continue to follow diagnostic workup results We will continue to monitor patient's labs and vitals closely . Needs physical therapy evaluation before discharge . Code status discussed with the patient patient wishes full code Time spent in discussing code status 16 minutes. We will do home medication reconciliation once updated in electronic by nursing staff or pharmacist. Further management depending on response to treatment . I will continue to follow patient in a.m. Date of Service: Jun 07, 2025 Billing Provider: TANNER WATSON MD Common Visit Codes: [id number] INP/OBS CARE(HIGH) TANNER WATSON MD Jun 07, 2025 20:28
[2025-06-08 01:50] VITALS: BP 133/72; PULSE 65; RESP 18; TEMP 97.8; O2SAT 94
[2025-06-08 01:51] VITALS: BP 133/72; PULSE 65; RESP 18; TEMP 97.8; O2SAT 94
[2025-06-08 06:00] VITALS: BP 151/72; PULSE 63; RESP 17; TEMP 98; O2SAT 100
[2025-06-08 06:16] LABS: MEAN PLATELET VOLUME 7.5 FL (7.4-10.4); RED CELL DISTRIBUTION WIDTH 13.9 % (11.5-14.5)
[2025-06-08 06:37] LABS: CHOL/HDL RATIO 2.5 (0.00-4.99); CREATININE 0.87 MG/DL (0.40-0.90); LDL CHOLESTEROL 81 MG/DL (50-100); TOTAL CARBON DIOXIDE 25.7 MMOL/L (24-32); eCRCL 53 ML/MIN; eGFR 65 ML/MIN
[2025-06-08] MEDS: levoTHYROXINE 75mcg tablet PO SCH (07:46)
[2025-06-08 08:00] VITALS: RESP 14; O2SAT 97
[2025-06-08] MEDS: ondansetron/PF 4mg/2ml inj IV PRN (08:09)
[2025-06-08 10:20] VITALS: BP 140/90; PULSE 71; RESP 14; TEMP 98.1; O2SAT 97
--- NOTE | 2025-06-08 16:33 | DISCHARGE SUMMARY ---
Discharge Summary Providers to CC ~ Discharge Summary Admission Diagnosis: stroke like symptoms, HTN Hospital Course DATE OF ADMISSION: June 06, 2025 DATE OF DISCHARGE: June 08, 2025 CBC testing done on June 08, 2025 WBC 6.2 hemoglobin 12.4 hematocrit 36.9 platelet count 276. Serum chemistry done on June 08, 2025 sodium 143 potassium 3.8 creatinine 0.87 GFR 65, hemoglobin A1c 5.6, normal lipid levels. MRA HEADIMPRESSION: No large vessel high-grade intracranial stenosis. ECHOCARDIOGRAMConclusion overall LVEF is 70%. Normal LV size and wall thickness. Overall systolic function is normal. RV appears mildly dilated with normal contractility. RVSP is estimated at 38 mmHG. Trileaflet AV appears sclerotic without stenosis. Trace insufficiency. MV is thickened with mild annular thickening and no stenosis. Trace tricuspid regurgitation. Trace pulmonic regurgitation. There is no pericardial effusion. CTA NECK/HEAD-IMPRESSION: 1. No large vessel occlusion, aneurysmal dilatation, or dissection seen within the intracranial or cervical vessels. CT STROKE ALERT-IMPRESSION: No intracranial hemorrhage or mass effect. Mild chronic microvascular ischemic changes. : CHEST,SINGLE VIEWIMPRESSION: No acute cardiopulmonary disease. MRI HEAD-IMPRESSION: 1. No acute infarct or hemorrhage. Discharge Diagnosis\\Comment: Possible TIA, chronic AFib, hyperlipidemia, Obstructive sleep apnea and CPAP, Graves disease Chronic lumbar pain, hypertensive urgency ( resolved) . Operations\\Procedures: None Consultants: None Complications: None Condition on DC: Stable Continued Medications: Apixaban (Eliquis) 5 Mg Tablet 5 MG PO BID, #60 TAB Buprenorphine Hcl (Buprenorphine Hcl) 2 Mg Tab.subl 0.5-1 TAB SL BID Levothyroxine Sodium* (Synthroid*) 75 Mcg Tablet 75 MCG PO DAILY Lisinopril (Lisinopril) 10 Mg Tablet 1 TAB PO BID Sotalol Hcl (Sotalol) 80 Mg Tablet 1 TAB PO BID Discharge Summary: As per my admitting history and physical note" Patient is 64-year-old female history of AFib, hypertension, hyperlipidemia, hypertensive emergency with CVA Global amnesia, Hypertensive emergency Obstructive sleep apnea and CPAP, Graves disease Chronic lumbar pain. Came to ER with her concern regarding blurry and double vision which she noticed this morning. She denied use of any alcohol tobacco or any recreational drugs. Patient has cardiac issues for which she follows with physician specialist Dr. Carbajal . She had gone to see her PCP Dr Villgeas and noticed for the her blood pressure was markedly elevated. PCP sent her here for evaluation of stroke-like symptoms. Patient denies any other symptoms off and on she has noticed chest pressure which is nonradiating. Neurology consultation done in ER assessment weakness they recommended brain MRI if symptoms persist and no clear etiology. Hospitalist services contacted for admission and further managemnt ". During hospitalization further stroke workup ordered which include MRI carotid Doppler studies neuro check. She was admitted for stroke-like symptoms and double vision. Results of further workup mentioned above patient's clinical condition improved. Acute stroke ruled out. Patient is feeling better she has been afebrile and getting discharged home in stable condition. Patient is seen and examined on the day of discharge. All labs, diagnostic workup and discharge plan discussed with patient and family members in detail before her discharge. All questions and queries answered to the best of my professional medical knowledge. I heard patient's concerns and address appropriately. Patient was cleared by Physical therapy team for home discharge . manager human capital involved in patient's discharge plan. Discharge instructions provided to the patient. please follow up PCP, Neurology specialist in outpatient setting , activity as tolerated , provide fall precaution documents . read side effects of all your medications and discuss with PCP . General-patient not in any acute distress, alert awake oriented, chronically ill-appearing HEENT-atraumatic normocephalic, neck supple without elevated JVD, no thyromegaly or carotid bruit. No lymphadenopathy bilaterally. Eyes-no icterus or pallor seen in eyes, double vision in left eye resolved Chest-clear to auscultation bilaterally, breathing nonlabored no tachypnea, no wheezing, no crepitation, no crackles. Heart-S1-S2 normal, regular heart rate no murmur Abdomen bowel sounds positive on auscultation, soft nondistended nontender no guarding, no rigidity Skin no active skin rash Neurology-grossly intact, nonfocal alert awake oriented, no arm drift, no speech abnormality no drooping of angle of mouth no weakness over both upper or lower extremity. Extremity- no pedal edema able to move all 4 extremities Psychiatry - patient is not confused or agitated cooperated during physical examination *Problems/Diagnosis: (1) Hypertensive urgency Status: Acute (2) Stroke-like symptoms Status: Acute Total Time Spent on D/C: > 30 Minutes Date of Service: Jun 08, 2025 Billing Provider: TANNER WATSON MD Common Visit Codes: 78073-PNO/OBS DISCH DAY >30min TANNER WATSON MD Jun 08, 2025 16:30
== END 2025-06-08 12:30 | disposition home or self-care (01) | DRG 69 ==
LOC: ER 11:19 → ED HOLD 14:06 → ORTHO 4S 16:20
PROVIDERS: ADMIT Internal Medicine; ATTEND Internal Medicine
PROC: B3251ZZ Computerized Tomography (CT Scan) of Bilateral Common Carotid Arteries using Low Osmolar Contrast (ICD-10-PCS; principal; 2025-06-06)
PROC: B32G1ZZ Computerized Tomography (CT Scan) of Bilateral Vertebral Arteries using Low Osmolar Contrast (ICD-10-PCS; 2025-06-06)
PROC: B32R1ZZ Computerized Tomography (CT Scan) of Intracranial Arteries using Low Osmolar Contrast (ICD-10-PCS; 2025-06-06)
PROC: B3281ZZ Computerized Tomography (CT Scan) of Bilateral Internal Carotid Arteries using Low Osmolar Contrast (ICD-10-PCS; 2025-06-06)
PROC: 05HC33Z Insertion of Infusion Device into Left Basilic Vein, Percutaneous Approach (ICD-10-PCS; 2025-06-06)
PROC: B54NZZA Ultrasonography of Left Upper Extremity Veins, Guidance (ICD-10-PCS; 2025-06-06)
PROC: 5A09357 Assistance with Respiratory Ventilation, Less than 24 Consecutive Hours, Continuous Positive Airway Pressure (ICD-10-PCS; 2025-06-06)
PROC: 5A09357 Assistance with Respiratory Ventilation, Less than 24 Consecutive Hours, Continuous Positive Airway Pressure (ICD-10-PCS; 2025-06-07)
PROC: 5A09357 Assistance with Respiratory Ventilation, Less than 24 Consecutive Hours, Continuous Positive Airway Pressure (ICD-10-PCS; 2025-06-08)
DX: G45.9 Transient cerebral ischemic attack, unspecified (principal); I48.20 Chronic atrial fibrillation, unspecified; I10 Essential (primary) hypertension; E05.00 Thyrotoxicosis with diffuse goiter without thyrotoxic crisis or storm; H53.2 Diplopia; G47.33 Obstructive sleep apnea (adult) (pediatric); E78.5 Hyperlipidemia, unspecified; Z86.73 Personal history of transient ischemic attack (TIA), and cerebral infarction without residual deficits; Z88.0 Allergy status to penicillin; Z90.49 Acquired absence of other specified parts of digestive tract; Z79.01 Long term (current) use of anticoagulants; Z79.899 Other long term (current) drug therapy; I16.0 Hypertensive urgency
CPT/HCPCS: 36410; 36415; 70450; 70496; 70498; 70544; 71045; 76937; 80048; 80053; 80061; 82948; 83036; 85025; 85610; 85730; 87081; 92508; 92616; 93005; 93306; 96360; 97116; 97161; 97530; 99291; C1751; G0378; J1644; J2405; J7030

== ENCOUNTER 2025-08-05 09:47 | Outpatient (CLI) | payer MEDICARE, MEDICAID ==
[~2025-08-05 09:47] MED LIST changes: -ATOR20TA66 PO
--- NOTE | 2025-08-05 12:12 | RADIOLOGY REPORT ---
INDICATION: LUMBAR SPONDYLOSIS COMPARISON: None TECHNIQUE: 3 views of the lumbar spine were obtained. FINDINGS: The lumbar vertebral alignment is normal. Multilevel degenerative changes most severe at L3-L4 through L5-S1 causing moderate to severe neural foraminal and spinal canal stenosis. No acute fracture, vertebral compression deformity or aggressive osseous lesions. The paravertebral soft tissues are grossly unremarkable. IMPRESSION: No acute fracture or subluxation.
--- NOTE | 2025-08-06 04:57 | RADIOLOGY REPORT ---
PROCEDURE: MR MRI LUMBAR SPINE INDICATION: SPONDYLOSIS W/O MYELOPATHY OR RADICULOPATHY, LUMBAR REGION;SCIATICA, RIGHT Exam Date: 08/05/2025 10:53 AM COMPARISON: DI LUMBAR SPINE LIMITED on DOS: 08/05/25 TECHNIQUE: MRI lumbar spine without intravenous contrast. FINDINGS: EXAM: MRI Lumbar Spine without contrast INDICATION: TECHNIQUE: Multiplanar, multisequence MR imaging of the lumbar spine was performed without IV contrast. FINDINGS: GENERAL: Lumbar lordosis is maintained. CONUS: Conus medullaris terminates at the T12-L1 level, demonstrates normal signal. CAUDA EQUINA: Unremarkable. OSSEOUS STRUCTURES: Marginal endplate osteophytic spurring is noted at T11- T12, T12-L1, L1-L2, L2-L3, L3-L4, L4-L5 and L5-S1. ALIGNMENT: No vertebral body listhesis is present. BONE MARROW: Vertebral body marrow signal is within normal limits. Endplate irregularity is noted at T11-T12, T12-L1, L1-L2, L2-L3, L3-L4, L4-L5 and L5-S1. Modic I, II changes at T12-L1 and L5-S1. Modic I changes at L1-L2, L2-L3, L3-L4 and L4-L5. PARASPINAL SOFT TISSUES: Paraspinal soft tissues are unremarkable. DISCS: Disc desiccation at T11-T12, T12-L1, L1-L2, L2-L3, L3-L4, L4-L5 and L5- S1. Intervertebral disc height loss at T11-T12, T12-L1, L1-L2, L2-L3, L3-L4, L4- L5 and L5-S1. Multiple Schmorl's nodes of the endplates of T10-L5. T12-L1: 5.9mm asymmetric right disc bulge. No spinal canal stenosis. Mild right foraminal stenosis. Moderate facet arthrosis. At T12-L1, there are a perineural cysts within the right and left neural foramen. L1-2: No spinal canal stenosis. Mild right foraminal stenosis. Moderate facet arthrosis. At L1-2, there is a perineural cyst within the right neural foramen. L2-3: 3.3mm diffuse disc bulge. No spinal canal or neural foraminal stenosis. Moderate facet arthrosis. L3-4: 3.1mm diffuse disc bulge. No spinal canal or neural foraminal stenosis. Moderate facet arthrosis. At L3-4, there are a perineural cysts within the right and left neural foramen. L4-5: 3.6mm diffuse disc bulge. No spinal canal stenosis. Mild left foraminal stenosis. Moderate facet arthrosis. At L4-5, there are a perineural cysts within the right and left neural foramen. L5-S1: 3.4mm diffuse disc bulge. No spinal canal or neural foraminal stenosis. Moderate facet arthrosis. At L5-S1, there is a perineural cyst within the right neural foramen. Small right renal cyst. IMPRESSION: 1. 5.9 mm asymmetric right disc bulge at T12-L1 with mild right foraminal stenosis; no central canal stenosis. 2. Diffuse disc bulge at L2-S1. 3. Moderate facet arthrosis at T12-S1. 4. Multiple perineural cysts within the neural foramina at T12-L1, L1-2, L3-4, L4-5, and L5-S1. 5. Modic type I and II endplate changes at T12-L1 and L5-S1; Modic type I changes at L1-2, L2-3, L3-4, and L4-5. 6. Multiple Schmorl's nodes from T10-L5.
== END 2025-08-05 23:59 | disposition home or self-care (01) ==
LOC: MRI02 09:47
PROVIDERS: ATTEND Nurse Practitioner Family
DX: M51.17 Intervertebral disc disorders with radiculopathy, lumbosacral region (principal); M47.816 Spondylosis without myelopathy or radiculopathy, lumbar region; G89.29 Other chronic pain; M48.07 Spinal stenosis, lumbosacral region
CPT/HCPCS: 72100; 72148